=== PATIENT | female | born 1945 | race African-American/Black ===

== ENCOUNTER 2024-05-21 10:42 | Emergency (ER) | payer MEDICARE, MEDICAID ==
[~2024-05-21] VITALS: Ht 170.2 cm; Wt 67.1 kg
[2024-05-21 11:27] LABS: BASOPHILS % (AUTO) 0.9 % (0.0-2.0); EOSINOPHILS # (AUTO) 0.1 K/uL (0.0-0.7); EOSINOPHILS % (AUTO) 1.8 % (0.0-6.0); HEMATOCRIT 39 % (33-45); LYMPHOCYTES # (AUTO) 1.8 K/uL (0.8-4.8); LYMPHOCYTES % (AUTO) 42.5 % (20.0-44.0); MEAN CORPUSCULAR HEMOGLOBIN 30 PG (26.0-33.0); MEAN CORPUSCULAR HGB CONC 33 g/dl (31.0-36.0); MEAN CORPUSCULAR VOLUME 91 fL (82-100); MONOCYTES # (AUTO) 0.3 K/uL (0.1-1.30); MONOCYTES % (AUTO) 8.1 % (2.0-12.0); NEUTROPHILS # (AUTO) 1.9 K/uL (1.8-8.9); NEUTROPHILS % (AUTO) 46.7 % (43.0-81.0); PLATELET COUNT (AUTO) 234 K/uL (150-450); RED BLOOD CELL COUNT(AUTO) 4.29 MIL/uL (4.0-5.2); RED CELL DISTRIBUTION WIDTH 13.7 % (11.5-15.0); WHITE BLOOD COUNT (AUTO) 4.1 K/uL (4.3-11.0)
[2024-05-21 11:35] LABS: CALCIUM, SERUM 9.3 mg/dL (8.5-10.1); CARBON DIOXIDE 31 mmol/L (21-32); CHLORIDE 103 mmol/L (98-107); CREATININE 0.8 mg/dL (0.6-1.3); GLUCOSE 84 mg/dL (74-106); POTASSIUM 3.5 mmol/L (3.5-5.1); SODIUM SERUM 138 mmol/L (136-145); UREA NITROGEN, BLOOD 9 mg/dL (7-18)
[2024-05-21 11:38] LABS: PROTHROMBIN TIME 10.3 SECS (9.2-11.1)
[2024-05-21 11:40] LABS: ALANINE AMINOTRANSFERASE 23 U/L (12-78); ALBUMIN 2.9 g/dL (3.4-5.0); ALKALINE PHOSPHATASE 69 U/L (46-116); ASPARTATE AMINOTRANSFERASE 18 U/L (15-37); BILIRUBIN,DIRECT 0.1 mg/dL (0.0-0.2); BILIRUBIN,TOTAL 0.4 mg/dL (0.2-1.0); TOTAL PROTEIN, SERUM 7.4 g/dL (6.4-8.2)
[2024-05-21 12:04] LABS: APPEARANCE,URINE Clear (CLEAR); BILIRUBIN,URINE Negative (NEGATIVE); BLOOD, URINE Negative Ery/uL (NEGATIVE); COLOR,URINE YELLOW (YELLOW); KETONES,URINE Negative (NEGATIVE); LEUKOCYTE ESTERASE ,URINE Trace (NEGATIVE); NITRITE, URINE Positive (NEGATIVE); PH,URINE 6.5 (5.0-8.0); PROTEIN,URINE Negative (NEGATIVE); UGLUCOSE Negative (NEGATIVE); UROBILINOGEN,URINE 0.2 EU/dL (0.2)
[2024-05-21 12:14] LABS: ADD URINE CULTURE YES; BACTERIA,URINE Few /HPF (None Seen); RBC,URINE 0-2 /HPF (0-2); SQUAMOUS EPITHELIAL CELL,UR Rare /HPF (None Seen)
[2024-05-21] MEDS ORDERED: MORP20SO SL (12:16)
[2024-05-21] MEDS ORDERED: CYAN-51 PO (12:16)
[2024-05-21] MEDS ORDERED: ACET650S11 RC (12:16)
[2024-05-21] MEDS ORDERED: HYDR-4209 PO (12:16)
[2024-05-21] MEDS ORDERED: ISOS30TA86 PO (12:16)
[2024-05-21] MEDS ORDERED: POLY17PO4 PO (12:16)
[2024-05-21] MEDS ORDERED: IPRA3AMP23 IH (12:16)
[2024-05-21] MEDS ORDERED: SENN8.6T19 PO (12:16)
[2024-05-21] MEDS ORDERED: LORA2ORA SL (12:16)
[2024-05-21] MEDS ORDERED: ONDA-97 SL (12:16)
[2024-05-21] MEDS ORDERED: MEMA10TA PO (12:16)
[2024-05-21] MEDS ORDERED: TRIA80CR12 TP (12:16)
[2024-05-21] MEDS ORDERED: BISA10SU11 RC (12:16)
[2024-05-21] MEDS ORDERED: MIRT7.5T10 PO (12:16)
[2024-05-21] MEDS ORDERED: TRAM50TA2 PO (12:17)
[2024-05-21] MEDS ORDERED: LACT10SO4 PO (12:17)
[2024-05-21] MEDS ORDERED: ASPI-1169 PO (12:17)
[2024-05-21] MEDS ORDERED: DONE10TA44 PO (12:17)
[2024-05-21] MEDS ORDERED: FURO-144 PO (12:17)
[2024-05-21] MEDS ORDERED: CIPR-262 PO (12:18)
[2024-05-21 12:58] VITALS: BP 110/69; TEMP 98.5; O2SAT 95
== END 2024-05-21 13:09 | disposition home health service (06) ==
LOC: ER 10:49
DX: N39.0 Urinary tract infection, site not specified (principal); F03.90 Unspecified dementia, unspecified severity, without behavioral disturbance, psychotic disturbance, mood disturbance, and anxiety; Z88.0 Allergy status to penicillin; Z88.2 Allergy status to sulfonamides
CPT/HCPCS: 36415; 71045-TC; 80048-TC; 80076-TC; 81001; 83605-TC; 84484-TC; 85025-TC; 85730-TC; 87040-TC; 87086-TC